=== PATIENT | female | born 1935 | race Caucasian/White ===

== ENCOUNTER 2021-03-01 09:38 | Outpatient (RCR) | payer MEDICARE, SELFPAY ==
--- NOTE | ~2021-03-01 | XR_ITS ---
EXAMINATION: XR SACRUM AND COCCYX CLINICAL INFORMATION: Nonhealing sacral wound. COMPARISON: None TECHNIQUE: 3 views of sacrum and coccyx FINDINGS: There is a deep ulceration of the soft tissues at the posterior gluteal region as seen best on lateral radiograph. There is air tracking from the skin into the soft tissues about 7.5 cm of depth. This does not extend to the surface of the sacrum or coccyx. The air tracks to about 1 cm superficial to the posterior cortex of the sacrum and coccyx. No bone destruction. No radiographic evidence for osteomyelitis. Partial transitional L5 vertebrae. The right transverse process articulates with the sacrum. There is advanced degenerative spondylosis of the spine of disc height narrowing and vertebral endplate spur. Sacroiliac joints are normal. Normal symphysis pubis. Moderate to large-volume of stool in the colonic bowel loops. XR/XR sacrum coccyx min 2V IMPRESSION: Deep ulceration of the soft tissues in the posterior gluteal region. No radiographic evidence of osteomyelitis.
[2021-03-08 16:11] LABS: MANUAL DIFF FLAG NO
[2021-03-08 16:38] LABS: Basophils Absolute Auto 0.1 X10*3/uL (0.0-0.2); Basophils Percent Auto 0.6 % (0-2); Eosinophils Absolute Auto 0.1 X10*3/uL (0.0-0.4); Eosinophils Percent Auto 1.8 % (0-4); Hematocrit 28.6 % (37.0-47.0); Hemoglobin 8.5 g/dl (12.0-16.0); Imm Gran Abs Auto 0.03 X10*3/uL (0.00-0.03); Imm Gran Pct Auto 0.4 % (0.0-0.4); Lymphocytes Absolute Auto 2.7 X10*3/uL (1.2-4.9); Lymphocytes Percent Auto 34.4 % (20-40); Mean Corpuscular HGB Conc 29.7 g/dl (31.0-35.0); Mean Corpuscular Hemoglobin 29.9 pg (27.0-33.0); Mean Corpuscular Volume 100.7 fL (80.0-98.0); Mean Platelet Volume 10.2 fL (9.4-12.3); Monocytes Absolute Auto 0.6 X10*3/uL (0.1-1.2); Monocytes Percent Auto 7.3 % (2-11); Neutrophils Absolute Auto 4.3 x10*3/uL (2.0-8.3); Neutrophils Percent Auto 55.5 % (45-73); Platelet Count 307 X10*3/uL (160-400); Red Blood Count 2.84 X10*6/uL (4.20-5.50); Red Cell Distribution Width 16.1 % (11.0-16.0); White Blood Count 7.8 X10*3/uL (4.8-10.8)
[2021-03-08 16:51] LABS: Anion Gap 14 (12-20); Blood Urea Nitrogen 20 mg/dL (9-16); C Reactive Protein 0.59 mg/dL (< or = 0.50); Calcium 8.9 mg/dL (8.4-10.2); Carbon Dioxide 26 mmol/L (22-29); Chloride 105 mmol/L (96-108); Estimated Glomerular Filt Rate 39; Glucose Random 90 mg/dL (60-115); Sodium 140 mmol/L (135-145)
[2021-03-08 16:53] LABS: Estimated Average Glucose 94 mg/dL; Hemoglobin A1c % 4.9 %
[2021-03-08 17:35] LABS: Erythrocyte Sedimentation Rate 69 MM/HR (0-20)
== END 2021-07-05 09:24 | disposition home or self-care (01) ==
LOC: HO.WCC 09:38
PROVIDERS: PCP Internal Medicine; Visit Provider Physician Assistant
DX: L89.154 Pressure ulcer of sacral region, stage 4 (principal); I48.20 Chronic atrial fibrillation, unspecified; Z87.891 Personal history of nicotine dependence
CPT/HCPCS: 11043; 11046; 36415; 72220; 80048; 83036; 84134; 85025; 85652; 86140; 97605; 99212; 99213